=== PATIENT | male | born 1955 | race Caucasian/White ===

== ENCOUNTER 2016-10-25 16:46 | Emergency (ER) | payer SELFPAY ==
[2016-10-25 16:57] VITALS: PULSE 88
[2016-10-25] MEDS ORDERED: Adacel Vial IM ONE ×2 (17:03→17:05)
--- NOTE | 2016-10-25 17:10 | ERPHSYRPT ---
- History of Present Illness Time Seen by Provider: 10/25/16 16:51 Source: patient Patient Subjective Stated Complaint: "I think I was bitten by a spider a couple of days ago and now my foot is all red". no family physician Triage Nursing Assessment: Pt alert and oriented X 3, skin pwd. pt ambulates without difficulty, able to speak in full sentences. Pt rt foot red, swollen Physician History: CC: red foot Hx: 61 y/o patient of Dr Landin. He works in [employer]. He noted a couple day hx of redness to the top of the right foot. He worried about spider bite. No known injury. No hx of gout. No drng. No streaking. No fever or chills. He is allergic to PCN but can take keflex and bactrim. Allergies/Adverse Reactions: Penicillins Allergy (Verified 10/25/16 16:57) Hx Tetanus, Diphtheria Vaccination/Date Given: No Hx Influenza Vaccination/Date Given: No Hx Pneumococcal Vaccination/Date Given: No Immunizations Up to Date: Yes - Review of Systems Constitutional: No Fever, No Chills Musculoskeletal: Joint Redness (right foot), No Back Pain, No Neck Pain, No Injury Neurological: No Focal Weakness, No Parasthesia - Past Medical History Pertinent Past Medical History: No - Past Surgical History Past Surgical History: No - Social History Smoking Status: Former smoker Exposure to second hand smoke: Yes Drug Use: none Patient Lives Alone: Yes Significant Family History: no pertinent family hx - Nursing Vital Signs Nursing Vital Signs: Initial Vital Signs Temperature 97.2 F 10/25/16 16:50 Pulse Rate 88 10/25/16 16:50 Respiratory Rate 18 10/25/16 16:50 Blood Pressure 138/89 10/25/16 16:50 O2 Sat by Pulse Oximetry 99 10/25/16 16:50 Pain Scale Pain Intensity 2 - Physical Exam General Appearance: alert Cardiovascular/Respiratory Exam: regular rate/rhythm Neuro/Tendon Exam: normal sensation, normal motor functions Mental Status Exam: alert, oriented x 3, cooperative Skin Exam: warm, dry SpO2 Interpretation: normal SpO2: 99 Oxygen Delivery: Room Air Comments: right foot has good pulses. There is red area dorsally without fluctuance or boil. ROM intact. Does not appear gout as not painful with movement. - Course Nursing assessment & vital signs reviewed: Yes Ordered Tests: Medication Summary Discontinued Medications Generic Name Dose Route Start Last Admin Trade Name Ingris PRN Reason Stop Dose Admin Diphtheria/Tetanus/Acell Pertussis 0.5 ml 10/25/16 17:03 Adacel Vial IM 10/25/16 17:04 .ONCE ONE - Departure Time of Disposition: 17:07 Departure Disposition: Home Clinical Impression: Cellulitis of right foot Condition: Stable Critical Care Time: No Referrals: ALLEN LANDIN [ACTIVE STAFF] - Instructions: Cellulitis -- Adult Additional Instructions: Elevate foot. Off work tomorrow. Wram compresses 4 times a day. Rx keflex. Rx bactrim. Follow up for any worsening. Ibuprofen as directed for discomfort. Prescriptions: Cephalexin Mh 500 mg [Keflex 500 mg] 1 cap PO QID #40 capsule Smz/Tmp Ds Tablet [Bactrim Ds Tablet] 1 udtab PO BID #20 tablet
[2016-10-25 17:17] VITALS: BP 138/62; O2SAT 98
== END 2016-10-25 17:16 | disposition home or self-care (01) ==
LOC: ED 16:46
DX: L03.115 Cellulitis of right lower limb (principal)
CPT/HCPCS: 90471; 90715; 99281

== ENCOUNTER 2017-03-07 07:25 | Emergency (ER) | payer OTHER ==
[2017-03-07] MEDS ORDERED: Sodium Chloride 0.9% 1000 ML 1,000 ML IV STA (08:00)
[2017-03-07] MEDS ORDERED: PROVENTIL 2.5 MG/3 ML NEB IH ONE ×2 (08:04→08:13)
[2017-03-07] MEDS ORDERED: ZITHROMAX IV 500 MG*** 0 MG in Sodium Chloride 0.9% 250 ML 250 ML IV ONE (08:04)
[2017-03-07] MEDS ORDERED: Robitussin-Dm Syrup PO ONE (08:05)
--- NOTE | 2017-03-07 08:06 | ERPHSYRPT ---
- History of Present Illness Time Seen by Provider: 03/07/17 07:54 Source: patient Exam Limitations: no limitations Patient Subjective Stated Complaint: Pt states "I hurt all over, have a sore throat and just ache." Triage Nursing Assessment: PT alert and oriented X 3, skin pwd. pt ambulates with an upright steady gait, able to speak in clear full sentences. PT appears not to be in any respiratory distress. Physician History: FOR THE PAST 2 WEEKS PT HAS HAD A SUBJECTIVE FEVER, RIGHT CHEST CONGESTION, THIRST, CHILLS AND DIAPHORESIS; FOR THE PAST WEEK DECREASED APPETITE, GENERALIZED ACHES AND COUGH PRODUCTIVE OF CLEAR PHLEGM; FOR THE PAST 2 DAYS NASAL CONGESTION, FRONTAL HEADACHE AND SORE THROAT. Allergies/Adverse Reactions: Penicillins Allergy (Verified 10/25/16 16:57) Hx Tetanus, Diphtheria Vaccination/Date Given: Yes Hx Influenza Vaccination/Date Given: No Hx Pneumococcal Vaccination/Date Given: No Immunizations Up to Date: Yes - Review of Systems Constitutional: Fever, Chills Ears, Nose, & Throat: Nose Congestion, Throat Pain Respiratory: Cough, Other (RIGHT CHEST CONGESTION) Abdominal/Gastrointestinal: Appetite Changes (DECREASED) Musculoskeletal: Other (GENERALIZED ACHES) Neurological: Headache Endocrine: Excessive Sweating, Other (THIRST) All Other Systems: Reviewed and Negative - Past Medical History Pertinent Past Medical History: No - Past Surgical History Past Surgical History: Yes Other Surgical History: left leg surgery - Social History Smoking Status: Former smoker Exposure to second hand smoke: Yes Drug Use: none Patient Lives Alone: Yes Significant Family History: no pertinent family hx - Nursing Vital Signs Nursing Vital Signs: Initial Vital Signs Temperature 100.5 F 03/07/17 07:49 Pulse Rate 76 03/07/17 07:49 Respiratory Rate 18 03/07/17 07:49 Blood Pressure 153/67 03/07/17 07:49 O2 Sat by Pulse Oximetry 100 03/07/17 07:49 Pain Scale Pain Intensity 0 - Physical Exam General Appearance: alert Eye Exam: PERRL/EOMI Ears, Nose, Throat Exam: TMs normal, dry mucous membranes, pharyngeal erythema Neck Exam: normal inspection Respiratory Exam: wheezing (MILD EXPIRATORY WHEEZING) Cardiovascular Exam: normal heart sounds Gastrointestinal/Abdomen Exam: soft, normal bowel sounds Back Exam: normal range of motion Extremity Exam: normal inspection, No pedal edema Neurologic Exam: alert, cooperative Skin Exam: warm, dry SpO2 Interpretation: normal SpO2: 100 Oxygen Delivery: Room Air - Course Nursing assessment & vital signs reviewed: Yes - Radiology Exams Chest X-ray Interpretation: Interpreted by me, No Pneumonia Ordered Tests: Active Orders 24 hr Category Date Time Status Clean Catch Urine Specimen STAT Care 03/07/17 08:00 Active IV Insertion STAT Care 03/07/17 08:00 Active CHEST 2 VIEWS (PA AND LAT) Stat Exams 03/07/17 08:01 Completed AMYLASE Stat Lab 03/07/17 08:26 Completed BLOOD CULTURE Stat Lab 03/07/17 08:26 Received CBC W DIFF Stat Lab 03/07/17 08:26 Completed CMP Stat Lab 03/07/17 08:26 Completed CULTURE, THROAT Stat Lab 03/07/17 08:30 Received CULTURE,SPUTUM Stat Lab 03/07/17 08:05 Uncollected LIPASE Stat Lab 03/07/17 08:26 Completed MAG [MAGNESIUM] Stat Lab 03/07/17 08:26 Completed [place] Screen Stat Lab 03/07/17 08:26 Completed STREP SCREEN-BETA A Stat Lab 03/07/17 08:30 Completed UA W/ MICROSCOPIC Stat Lab 03/07/17 08:30 Completed Urine Triage Profile Stat Lab 03/07/17 08:30 Completed Respiratory Nebulizer STAT RT 03/07/17 08:04 Active Medication Summary Generic Name Dose Route Start Last Admin Trade Name Freq PRN Reason Stop Dose Admin Azithromycin / Sodium Chloride 250 mls @ 125 mls/hr 03/07/17 08:04 IV 03/07/17 10:03 STAT ONE Magnesium Oxide 400 mg 03/07/17 10:00 03/07/17 09:07 Mag-Ox 400 PO 04/06/17 09:59 400 mg BID ITZEL Administration Discontinued Medications Generic Name Dose Route Start Last Admin Trade Name Freq PRN Reason Stop Dose Admin Albuterol Sulfate 2.5 mg 03/07/17 08:04 03/07/17 08:17 Proventil 2.5 Mg/3 Ml Neb IH 03/07/17 08:05 2.5 mg STAT ONE Administration Albuterol Sulfate Confirm 03/07/17 08:13 Proventil 2.5 Mg/3 Ml Neb Administered 03/07/17 08:14 Dose 2.5 mg IH .STK-MED ONE Guaifenesin/Codeine Phosphate Confirm 03/07/17 08:12 Robitussin Ac Syrup Unit Dose Cup Administered 03/07/17 08:13 Dose 10 ml .ROUTE .STK-MED ONE Guaifenesin/Dextromethorphan 10 ml 03/07/17 08:05 03/07/17 08:23 Robitussin-Dm Syrup PO 03/07/17 08:06 Not Given STAT ONE Sodium Chloride 1,000 mls @ 999 mls/hr 03/07/17 08:00 03/07/17 08:14 Sodium Chloride 0.9% 1000 Ml IV 03/07/17 09:00 999 mls/hr .Q1H1M STA Administration Sodium Chloride Confirm 03/07/17 08:12 Sodium Chloride 0.9% 1000 Ml Administered 03/07/17 08:13 Dose 1,000 mls @ ud .ROUTE .STK-MED ONE Lab/Rad Data: Laboratory Result Diagrams 03/07/17 08:26 03/07/17 08:26 Laboratory Results 03/07/17 03/07/17 03/07/17 Range/Units 08:30 08:30 08:30 WBC (4.0-10.5) K/mm3 RBC (4.1-5.6) M/mm3 Hgb (12.5-18.0) gm/dl Hct (42-50) % MCV (78-100) fl MCH (26-32) pg MCHC (32-36) g/dl RDW (11.5-14.0) % Plt Count (150-450) K/mm3 MPV (6-9.5) fl Gran % (36.0-66.0) % Lymphocytes % (24.0-44.0) % Monocytes % (0.0-12.0) % Eosinophils % (0.00-5.0) % Basophils % (0.0-0.4) % Basophils # (0-0.4) Sodium (136-145) mEq/L Potassium (3.5-5.1) mEq/L Chloride (98-107) mEq/L Carbon Dioxide (21-32) mEq/L Anion Gap (5-15) MEQ/L BUN (9-20) mg/dL Creatinine (0.55-1.30) mg/dl Estimated GFR ML/MIN Glucose (70-110) MG/DL Calcium (8.5-10.1) mg/dL Magnesium (1.8-2.4) mg/dL Total Bilirubin (0.2-1.0) mg/dL AST (15-37) U/L ALT (12-78) U/L Alkaline Phosphatase (46-116) U/L Serum Total Protein (6.4-8.2) gm/dL Albumin (3.4-5.0) g/dL Amylase (25-115) U/L Lipase (73-393) U/L Ur Collection Type Urine Color (YELLOW) Urine Appearance (CLEAR) Urine pH (5-6) Ur Specific [place] (1.005-1.025) Urine Protein (Negative) Urine Ketones (NEGATIVE) Urine Blood (0-5) Cooper/ul Urine Nitrite (NEGATIVE) Urine Bilirubin (NEGATIVE) Urine Urobilinogen (0-1) mg/dL Ur Leukocyte Esterase (NEGATIVE) Urine Microscopic RBC (0-2) /HPF Ur Epithelial Cells (FEW) /HPF Urine Bacteria (NEGATIVE) /HPF Urine Culture Reflexed (NO) Urine Glucose (NEGATIVE) mg/dL Urine Opiates Level NEG. (NEGATIVE) Ur Methadone NEG. (NEGATIVE) Urine Barbiturates NEG. (NEGATIVE) Ur Phencyclidine (PCP) NEG. (NEGATIVE) Urine Amphetamine POS. (NEGATIVE) U Benzodiazepine Level NEG. (NEGATIVE) Urine Cocaine NEG. (NEGATIVE) Urine Marijuana (THC) NEG. (NEGATIVE) Monoscreen (Negative) Influenza Type A Ag POSITIVE (NEGATIVE) Influenza Type B Ag NEGATIVE (NEGATIVE) RSV (PCR) NEGATIVE (Negative) Streptococcus Screen NEGATIVE (Negative) Specimen Received 03/07/17 03/07/17 03/07/17 Range/Units 08:30 08:26 08:26 WBC (4.0-10.5) K/mm3 RBC (4.1-5.6) M/mm3 Hgb (12.5-18.0) gm/dl Hct (42-50) % MCV (78-100) fl MCH (26-32) pg MCHC (32-36) g/dl RDW (11.5-14.0) % Plt Count (150-450) K/mm3 MPV (6-9.5) fl Gran % (36.0-66.0) % Lymphocytes % (24.0-44.0) % Monocytes % (0.0-12.0) % Eosinophils % (0.00-5.0) % Basophils % (0.0-0.4) % Basophils # (0-0.4) Sodium (136-145) mEq/L Potassium (3.5-5.1) mEq/L Chloride (98-107) mEq/L Carbon Dioxide (21-32) mEq/L Anion Gap (5-15) MEQ/L BUN (9-20) mg/dL Creatinine (0.55-1.30) mg/dl Estimated GFR ML/MIN Glucose (70-110) MG/DL Calcium (8.5-10.1) mg/dL Magnesium 1.7 L (1.8-2.4) mg/dL Total Bilirubin (0.2-1.0) mg/dL AST (15-37) U/L ALT (12-78) U/L Alkaline Phosphatase (46-116) U/L Serum Total Protein (6.4-8.2) gm/dL Albumin (3.4-5.0) g/dL Amylase (25-115) U/L Lipase (73-393) U/L Ur Collection Type VOID Urine Color YELLOW (YELLOW) Urine Appearance CLEAR (CLEAR) Urine pH 6.0 (5-6) Ur Specific [place] 1.015 (1.005-1.025) Urine Protein 30 (Negative) Urine Ketones NEGATIVE (NEGATIVE) Urine Blood 50 (0-5) Cooper/ul Urine Nitrite NEGATIVE (NEGATIVE) Urine Bilirubin NEGATIVE (NEGATIVE) Urine Urobilinogen 1 (0-1) mg/dL Ur Leukocyte Esterase NEGATIVE (NEGATIVE) Urine Microscopic RBC 2-5 (0-2) /HPF Ur Epithelial Cells RARE (FEW) /HPF Urine Bacteria RARE (NEGATIVE) /HPF Urine Culture Reflexed NO (NO) Urine Glucose NEGATIVE (NEGATIVE) mg/dL Urine Opiates Level (NEGATIVE) Ur Methadone (NEGATIVE) Urine Barbiturates (NEGATIVE) Ur Phencyclidine (PCP) (NEGATIVE) Urine Amphetamine (NEGATIVE) U Benzodiazepine Level (NEGATIVE) Urine Cocaine (NEGATIVE) Urine Marijuana (THC) (NEGATIVE) Monoscreen NEGATIVE (Negative) Influenza Type A Ag (NEGATIVE) Influenza Type B Ag (NEGATIVE) RSV (PCR) (Negative) Streptococcus Screen (Negative) Specimen Received 1/1/18 0830 03/07/17 03/07/17 Range/Units 08:26 08:26 WBC 4.5 (4.0-10.5) K/mm3 RBC 4.14 (4.1-5.6) M/mm3 Hgb 12.9 (12.5-18.0) gm/dl Hct 38.6 L (42-50) % MCV 93.2 (78-100) fl MCH 31.2 (26-32) pg MCHC 33.4 (32-36) g/dl RDW 12.7 (11.5-14.0) % Plt Count 105 L (150-450) K/mm3 MPV 9.6 H (6-9.5) fl Gran % 64.4 (36.0-66.0) % Lymphocytes % 19.5 L (24.0-44.0) % Monocytes % 15.5 H (0.0-12.0) % Eosinophils % 0.4 (0.00-5.0) % Basophils % 0.2 (0.0-0.4) % Basophils # 0.01 (0-0.4) Sodium 131 L (136-145) mEq/L Potassium 4.2 (3.5-5.1) mEq/L Chloride 97 L (98-107) mEq/L Carbon Dioxide 23.8 (21-32) mEq/L Anion Gap 14.2 (5-15) MEQ/L BUN 10 (9-20) mg/dL Creatinine 0.96 (0.55-1.30) mg/dl Estimated GFR > 60 ML/MIN Glucose 101 (70-110) MG/DL Calcium 8.4 L (8.5-10.1) mg/dL Magnesium (1.8-2.4) mg/dL Total Bilirubin 0.50 (0.2-1.0) mg/dL AST 38 H (15-37) U/L ALT 39 (12-78) U/L Alkaline Phosphatase 70 (46-116) U/L Serum Total Protein 8.0 (6.4-8.2) gm/dL Albumin 3.6 (3.4-5.0) g/dL Amylase 79 (25-115) U/L Lipase 82 (73-393) U/L Ur Collection Type Urine Color (YELLOW) Urine Appearance (CLEAR) Urine pH (5-6) Ur Specific [place] (1.005-1.025) Urine Protein (Negative) Urine Ketones (NEGATIVE) Urine Blood (0-5) Cooper/ul Urine Nitrite (NEGATIVE) Urine Bilirubin (NEGATIVE) Urine Urobilinogen (0-1) mg/dL Ur Leukocyte Esterase (NEGATIVE) Urine Microscopic RBC (0-2) /HPF Ur Epithelial Cells (FEW) /HPF Urine Bacteria (NEGATIVE) /HPF Urine Culture Reflexed (NO) Urine Glucose (NEGATIVE) mg/dL Urine Opiates Level (NEGATIVE) Ur Methadone (NEGATIVE) Urine Barbiturates (NEGATIVE) Ur Phencyclidine (PCP) (NEGATIVE) Urine Amphetamine (NEGATIVE) U Benzodiazepine Level (NEGATIVE) Urine Cocaine (NEGATIVE) Urine Marijuana (THC) (NEGATIVE) Monoscreen (Negative) Influenza Type A Ag (NEGATIVE) Influenza Type B Ag (NEGATIVE) RSV (PCR) (Negative) Streptococcus Screen (Negative) Specimen Received - Departure Time of Disposition: 10:01 Departure Disposition: Home Clinical Impression: BRONCHITIS, MILD HYPOMAGNESEMIA, AMPHETAMINE USE, INFLUENZA "A" Condition: Stable Critical Care Time: No Referrals: ALLEN LANDIN [Primary Care Provider] - Instructions: Influenza -- Adult, Bronchitis Additional Instructions: FOLLOW UP WITH PRIVATE DOCTOR TOMORROW. Prescriptions: Guaifenesin/Codeine Phosphate [Robitussin AC Syrup] 10 ml PO Q4H PRN PRN #120 ml PRN Reason: Cough Naproxen [Naprosyn] 500 mg PO [id number] PRN #20 tablet PRN Reason: Pain Azithromycin 250 mg [Zithromax 250 MG TABLET] 250 mg PO ZPACK #6 tablet
[2017-03-07] MEDS ORDERED: Robitussin AC Syrup Unit Dose Cup ONE (08:12)
[2017-03-07] MEDS ORDERED: Sodium Chloride 0.9% 1000 ML 1,000 ML ONE (08:12)
[2017-03-07 08:43] LABS: BASOPHIL % 0.2 % (0.0-0.4); Basophil (Absolute #) 0.01 (0-0.4); Eosinophil % 0.4 % (0.00-5.0); Eosinophil (Absolute #) 0.02 (0-0.5); Granulocyte Absolute (ANC) 2.87 (1.4-6.9); Granulocytes % 64.4 % (36.0-66.0); Hematocrit 38.6 % (42-50); Hemoglobin 12.9 gm/dl (12.5-18.0); Lymphocyte (Absolute #) 0.87 (1.0-4.6); Lymphocytes % 19.5 % (24.0-44.0); Mean Cell Volume 93.2 fl (78-100); Mean Corpuscular Hemoglobin 31.2 pg (26-32); Mean Corpuscular Hgb Concent. 33.4 g/dl (32-36); Mean Platelet Volume 9.6 fl (6-9.5); Monocyte (Absolute #) 0.69 (0.0-1.3); Monocytes % 15.5 % (0.0-12.0); Platelet Count 105 K/mm3 (150-450); Red Blood Count 4.14 M/mm3 (4.1-5.6); Red Cell Distribution Width 12.7 % (11.5-14.0); White Blood Count 4.5 K/mm3 (4.0-10.5)
[2017-03-07 08:58] LABS: ALBUMIN 3.6 g/dL (3.4-5.0); ALKALINE PHOSPHATASE 70 U/L (46-116); AMYLASE 79 U/L (25-115); ANION GAP 14.2 MEQ/L (5-15); BLOOD UREA NITROGEN 10 mg/dL (9-20); CHLORIDE 97 mEq/L (98-107); Calcium 8.4 mg/dL (8.5-10.1); Carbon Dioxide 23.8 mEq/L (21-32); Creatinine 1 0.96 mg/dl (0.55-1.30); EST GLOMERULAR FILTRATION RATE > 60 ML/MIN; Glucose 101 MG/DL (70-110); LIPASE 82 U/L (73-393); Potassium 4.2 mEq/L (3.5-5.1); SGOT/AST 38 U/L (15-37); SGPT/ALT 39 U/L (12-78); SODIUM 131 mEq/L (136-145)
[2017-03-07 09:04] LABS: Amphetamine,Urine POS. (NEGATIVE); Barbiturate,Urine NEG. (NEGATIVE); Benzodiazepine,Urine NEG. (NEGATIVE); Cocaine,Urine NEG. (NEGATIVE); Methadone,Urine NEG. (NEGATIVE); Opiate,Urine NEG. (NEGATIVE); PCP,Urine NEG. (NEGATIVE); THC,Urine NEG. (NEGATIVE)
[2017-03-07] MEDS ORDERED: MAG-OX 400 ONE (09:06)
[2017-03-07 09:09] LABS: Appearance CLEAR (CLEAR); Bacteria RARE /HPF (NEGATIVE); Bilirubin NEGATIVE (NEGATIVE); Blood 50 Ery/ul (0-5); Epithelial Cells RARE /HPF (FEW); Glucose NEGATIVE (NEGATIVE); Ketones NEGATIVE (NEGATIVE); Leukocyte Esterase NEGATIVE (NEGATIVE); Nitrite NEGATIVE (NEGATIVE); Protein,Urine Dip 30 (Negative); Specific Gravity 1.015 (1.005-1.025); Urobilinogen 1 mg/dL (0-1)
--- NOTE | 2017-03-07 09:38 | XRAY ---
Indication: Cough and congestion. Comparison: None PA/lateral chest hyperinflated and clear with incidental tiny calcified granulomas. Heart is not enlarged. Vascularity normal. Bony thorax intact with minimal degenerative changes. Impression: Nonacute hyperinflated chest with chronic features.
[2017-03-07 09:47] LABS: INFLUENZA A POSITIVE (NEGATIVE); INFLUENZA B NEGATIVE (NEGATIVE); RESPIRATORY SYNCTIAL VIRUS NEGATIVE (Negative)
[2017-03-07 09:55] VITALS: BP 143/77; PULSE 80
[2017-03-07 09:57] VITALS: O2SAT 100
[2017-03-07] MEDS ORDERED: MAG-OX 400 PO SCH (10:00)
== END 2017-03-07 10:13 | disposition home or self-care (01) ==
LOC: ED 07:25
DX: J40 Bronchitis, not specified as acute or chronic (principal); E83.42 Hypomagnesemia; F15.90 Other stimulant use, unspecified, uncomplicated; J10.1 Influenza due to other identified influenza virus with other respiratory manifestations; R09.89 Other specified symptoms and signs involving the circulatory and respiratory systems; Z87.891 Personal history of nicotine dependence
CPT/HCPCS: 36000; 36415; 71046; 80053; 80307; 81000; 82150; 83690; 83735; 85025; 86308; 87040; 87070; 87430; 87631; 94640; 99284; A9270-GY

== ENCOUNTER 2022-09-05 12:47 | Emergency (ER) | payer MEDICARE, OTHER ==
[2022-09-05] MEDS ORDERED: Fluor-I-Strip/Ful-Flo OP ONE ×2 (12:54→12:56)
[2022-09-05] MEDS ORDERED: TETRACAINE 0.5% STERI-UNIT SOL OP STA (12:54)
[2022-09-05] MEDS ORDERED: Eye-Stream Solution OP ONE (12:54)
[2022-09-05] MEDS ORDERED: TETRACAINE 0.5% STERI-UNIT SOL OP ONE (12:56)
[2022-09-05] MEDS ORDERED: Eye-Stream Solution ONE (12:57)
[2022-09-05 13:05] VITALS: BP 133/87; PULSE 78; O2SAT 98
[2022-09-05] MEDS ORDERED: CIPROFLOXACIN HCL OP ONE (13:11)
[2022-09-05] MEDS ORDERED: Acular OPTH SOL OP ONE ×2 (13:13→13:21)
--- NOTE | 2022-09-05 13:26 | ERPHSYRPT ---
- History of Present Illness Time Seen by Provider: 09/05/22 13:00 Source: patient Exam Limitations: no limitations Patient Subjective Stated Complaint: C/O right eye injury/pain. Patient states that he [place] about 4 days ago and a corn stalk scrat ched his right eye. Patient states it just isn't getting any better and feels worse today. Triage Nursing Assessment: Patient ambulated back to ER squinting. He is alert and oriented. No SOB. Right eye is red, inflammed. Eye tearing up during assessment. Physician History: 67-year-old male presents emergency room with right eye pain and feeling of f oreign body sensation. Patient reports running through [place] with his coon dogs 4 days ago and was hit in the eye by corn stock. Patient reports that symptoms have not improved since initial injury. He denies any previous injury to his eye. He wears no contact lenses. Timing/Duration: day(s) (4) Location: right eye Severity: moderate Apparent Injury: yes Associated Symptoms: pain, redness, foreign body sensation, decreased vision, No burning, No itching, No sensitivity to light, No eyelid swelling Visual Assistive Devices: None Chemical Exposure: No Trauma: Yes Welding Arc/Tanning Bed Exposure: No Allergies/Adverse Reactions: Penicillins Allergy (Verified 09/05/22 12:55) Home Medications: No Reportable Medications [No Reported Medications] 09/05/22 [History] Hx Tetanus, Diphtheria Vaccination/Date Given: Yes Hx Influenza Vaccination/Date Given: No Hx Pneumococcal Vaccination/Date Given: No Immunizations Up to Date: Yes Travel Risk - International Travel Have you traveled outside of the country in past 3 weeks: No - Coronavirus Screening Are you exhibiting any of the following symptoms?: No Close contact with a COVID-19 positive Pt in past 14-21 Days: No - Vaccine Status Have you recieved a Covid-19 vaccination: No - Review of Systems Constitutional: No Symptoms Eyes: Eye Pain, Eye Redness, Vision Changes, Foreign Body Sensation, No Itchy, No Photophobia, No Tearing All Other Systems: Reviewed and Negative - Past Medical History Pertinent Past Medical History: No - Past Surgical History Past Surgical History: Yes Other Surgical History: left leg surgery - Social History Smoking Status: Current every day smoker How long have you smoked: 40 years Exposure to second hand smoke: Yes Drug Use: none Patient Lives Alone: Yes Significant Family History: no pertinent family hx - Nursing Vital Signs Nursing Vital Signs: Initial Vital Signs Temperature 97.7 F 09/05/22 12:57 Pulse Rate 78 09/05/22 12:57 Respiratory Rate 19 09/05/22 12:57 Blood Pressure 133/87 09/05/22 12:57 O2 Sat by Pulse Oximetry 98 09/05/22 12:57 Pain Scale Pain Intensity 0 - Physical Exam General Appearance: no apparent distress Vision Acuity Degree Evaluation Phase: Uncorrected Vision Acuity Right Eye: 20/100 Vision Acuity Left Eye: 20/100 Eye Exam: right eye: conjunctival inflammation, corneal abrasion (overlying pupil), bilateral eye: PERRL, EOMI SpO2: 98 Procedures - Eye Procedure Time of Procedure: 13:20 Timeout: Performed Tetracaine Drops Administered: Yes Remaining Material after FB Removal: none Antibiotic Oinment/Drps Admin: right eye Progress: Fluorescein stain was applied and Smyth lamp was used to evaluate for corneal abrasion. Patient was found to have a 1 to 2 mm circular abrasion overlying the pupil. - Course Nursing assessment & vital signs reviewed: Yes Ordered Tests: Active Orders 24 hr Category Date Time Status Visual Acuity STAT Care 09/05/22 12:54 Active Medication Summary Generic Name Dose Route Start Last Admin Trade Name Freq PRN Reason Stop Dose Admin Ciprofloxacin 2 ml 09/05/22 16:00 09/05/22 13:22 Ciprofloxacin Hcl 2.5 Ml Bottle OP 10/05/22 15:59 2 ml [id number] ITZEL Administration Discontinued Medications Generic Name Dose Route Start Last Admin Trade Name Freq PRN Reason Stop Dose Admin Ciprofloxacin Confirm 09/05/22 13:11 Ciprofloxacin Hcl 2.5 Ml Bottle Administered 09/05/22 13:12 Dose 2.5 ml OP .STK-MED ONE Eye Irrigation Solution 15 ml 09/05/22 12:54 09/05/22 12:57 Sodium/Potassium/Bryan/Magnesium 30 Ml Eye Wash OP 09/05/22 12:55 15 ml STAT ONE Administration Eye Irrigation Solution Confirm 09/05/22 12:57 Sodium/Potassium/Bryna/Magnesium 30 Ml Eye Wash Administered 09/05/22 12:58 Dose 30 ml .ROUTE .STK-MED ONE Fluorescein Sodium 1 mg 09/05/22 12:54 09/05/22 12:57 Fluorescein Sodium 1 Mg/Strip Strip OP 09/05/22 12:55 1 mg STAT ONE Administration Fluorescein Sodium Confirm 09/05/22 12:56 Fluorescein Sodium 1 Mg/Strip Strip Administered 09/05/22 12:57 Dose 1 mg OP .STK-MED ONE Ketorolac Tromethamine Confirm 09/05/22 13:13 Ketorolac Tromethamine 0.5% 5 Ml Bottle Administered 09/05/22 13:14 Dose 5 ml OP .STK-MED ONE Ketorolac Tromethamine 5 ml 09/05/22 13:21 09/05/22 13:23 Ketorolac Tromethamine 0.5% 5 Ml Bottle OP 09/05/22 13:22 5 ml STAT ONE Administration Tetracaine HCl 4 ml 09/05/22 12:54 09/05/22 12:57 Tetracaine Hcl/Pf 4 Ml Bottle OP 09/05/22 12:55 4 ml STAT STA Administration Tetracaine HCl Confirm 09/05/22 12:56 Tetracaine Hcl/Pf 4 Ml Bottle Administered 09/05/22 12:57 Dose 4 ml OP .STK-MED ONE - Progress Progress: improved Progress Note: Patient found to have a corneal abrasion. We will give ciprofloxacin eyedrops to cover for Pseudomonas due to trauma from vegetation. We will also give ketorolac eyedrops to help with pain and inflammation. Patient is allowed to use tetracaine eyedrops every 2-3 hours for 24 hours, but do not use past the 24-hour griffin. I do advise the patient to follow-up with an real estate developer just for follow-up due to the location of the abrasion. Counseled pt/family regarding: diagnosis, need for follow-up Medical Desision Making - Diagnostic Testing Diagnostic test were ordered, analyzed, and reviewed by me: Yes Radiological Interpretation: Interpreted by me - Risk of complications The pt has a mod risk of morbidity or mortality based on: Need for prescription drug management - Departure Departure Disposition: Home Clinical Impression: Corneal abrasion, right Condition: Good Critical Care Time: No Referrals: DOCTOR,NO FAMILY [Primary Care Provider] - Follow up/PCP as directed NOA CASTILLO MD [NON-STAFF PHY W/O PRIVILEGES] - Follow up/PCP as directed Instructions: Corneal Abrasion (DC)
[2022-09-05] MEDS ORDERED: CIPROFLOXACIN HCL OP SCH (16:00)
== END 2022-09-05 13:45 | disposition home or self-care (01) ==
LOC: ED 12:47
DX: S05.01XA Injury of conjunctiva and corneal abrasion without foreign body, right eye, initial encounter (principal); W20.8XXA Other cause of strike by thrown, projected or falling object, initial encounter; Y93.02 Activity, running; Y92.73 Farm field as the place of occurrence of the external cause; Z28.310 Unvaccinated for COVID-19; Z72.0 Tobacco use
CPT/HCPCS: 99281; A9270-GY